=== PATIENT | male | born 1990 | race Caucasian/White ===

== ENCOUNTER 2016-08-23 19:08 | Emergency (ER) | payer MEDICAID ==
[~2016-08-23 19:08] MED LIST: ATIVAN0.5 M1 PO; IMITREX50 MG PO; LEXAPRO10 MG PO; MOTRIN800 MG PO; ZOFRAN ODT4 MG SL
[2016-08-23 19:53] VITALS: BP 135/97
== END 2016-08-23 23:34 | disposition left against medical advice (07) ==
LOC: ED 19:08
DX: Z53.21 Procedure and treatment not carried out due to patient leaving prior to being seen by health care provider (principal)